=== PATIENT | female | born 1955 | race Caucasian/White ===

== ENCOUNTER 2018-11-05 16:21 | Outpatient (REF) | payer OTHER, SELFPAY ==
[2018-11-05 19:32] LABS: TSH (W/Ref FT4) 1.33 uIU/mL (0.358-3.74)
[2018-11-06 06:08] LABS: Vitamin D 25 Total 43.9 ng/ml (30-100)
== END 2018-11-05 16:41 ==
LOC: NCHCN 16:21
PROVIDERS: PCP Family Medicine; Visit Provider Family Medicine
DX: E03.9 Hypothyroidism, unspecified (principal); E55.9 Vitamin D deficiency, unspecified
CPT/HCPCS: 82306; 84443

== ENCOUNTER 2019-03-23 00:10 | Outpatient (CLI) | payer OTHER, SELFPAY ==
--- NOTE | 2019-03-23 11:20 | DI.MAMMO_ITS ---
SYMPTOMS/DIAGNOSIS: SCREENING, Z12.31 MAMMOGRAM: Mammograms were interpreted according to the usual protocol including computer analysis with CAD system, tomosynthesis and C view imaging. The breasts are of moderate density with fairly symmetrical distribution of fibroglandular tissue. No dominant mass or clumped microcalcification is identified in either breast. Current examination is compared with previous examinations including February 2018 and there has been no gross interval change in appearance in comparison with the previous studies. CONCLUSION: No specific evidence of malignancy at this time. Routine screening examinations are suggested at yearly intervals in this age group according to the ACS/ACR guidelines. Category 1, breast density category B. MQSA ASSESSMENT OF FINDINGS: Negative. Category 1. Patient will receive a letter notifying them of these results. BI-RADS category B. There are scattered areas of fibroglandular density.
== END 2019-03-23 00:30 ==
PROVIDERS: PCP Family Medicine; Visit Provider Family Medicine
DX: Z12.31 Encounter for screening mammogram for malignant neoplasm of breast (principal)
CPT/HCPCS: 77063; 77067

== ENCOUNTER 2019-11-06 15:54 | Outpatient (REF) | payer OTHER, SELFPAY ==
[2019-11-06 19:03] LABS: C-Reactive Protein 1.14 mg/dL (0.0-0.3)
[2019-11-06 20:38] LABS: ESR 27 mm/hr (0-30)
[2019-11-09 10:33] LABS: Cyclic Citrullinated Peptide <2.5 U/mL (<5.0)
[2019-11-10 15:33] LABS: ANA Interpretation Positive (Negative); ANA Titer Pattern 1:80 Speckled
== END 2019-11-06 16:14 ==
LOC: NCHCN 15:54
PROVIDERS: PCP Family Medicine; Visit Provider Family Medicine
DX: M25.539 Pain in unspecified wrist (principal)
CPT/HCPCS: 85652; 86200; 86038; 86140

== ENCOUNTER 2020-11-09 16:10 | Outpatient (REF) | payer OTHER, SELFPAY ==
--- NOTE | 2020-11-09 15:35 | PAPFT_PTH ---
PATIENT: Gerri Canales LOC: [facility]#:[id number] AGE/SX: 65/F ROOM: RE11/09/[address]: Mallory Chaudhary : 1955 BED: DIS: 11/09/2020 SPEC #: [id number] RECD: 11/10/20 13:08 STATUS: JESSE RENavdeep #: [id number] RAHAT: 11/09/20 15:[address]: Mallory Chaudhary DEPT: [facility] Cytology RECD BY: Araceli Schultz Tissues: 1 - CX/ENDOCX FOR PAP SMEARS Procedures: PAP THIN PREP/UVM Screening HPV DNA PROBE Comments: [id number]
[2020-11-09 20:51] LABS: HCT 40.9 % (36.0-46.0); HGB 13.4 g/dL (11.2-15.7); MCH 30.9 pg (27.0-33.0); MCHC 32.8 % (32.0-36.0); MCV 94.2 fL (80-95); MPV 10.6 fL (8.0-11.0); Platelet Count 349 10^3/uL (130-400); RBC 4.34 10^6/uL (3.93-5.22); RDW 12.9 % (11.7-14.6); RDW-SD 44.9 fL; WBC 8.25 10^3/uL (4.4-10.8)
[2020-11-09 21:22] LABS: Hemoglobin A1C 5.7 % (<5.7)
[2020-11-09 21:27] LABS: ALT 50 U/L (14-59); AST 24 U/L (15-37); Albumin 3.9 g/dL (3.4-5.0); Alkaline Phosphatase 83 U/L (46-116); Anion Gap 11.6 mmol/L (3-11); BUN 11 mg/dL (7-18); Bilirubin, Total 0.3 mg/dL (0.2-1.0); CO2 25.4 mmol/L (21.0-32.0); CREATININE 0.87 mg/dL (0.55-1.02); Calcium 9.4 mg/dL (8.5-10.1); Chloride 105 mmol/L (98-107); Glucose 103 mg/dL (74-106); Potassium 4.3 mmol/L (3.5-5.1); Sodium 142 mmol/L (136-145); TSH (W/Ref FT4) 1.96 uIU/mL (0.36-3.74); Total Protein 7.8 g/dL (6.4-8.2); Vitamin B12 1074 pg/mL (193-986)
[2020-11-09 21:28] LABS: Folate > 20.0 ng/mL (8.6-20.0)
[2020-11-10 04:49] LABS: Vitamin D 25 Total 43.2 ng/ml (30-100)
== END 2020-11-09 16:30 ==
LOC: NCHCN 16:10
PROVIDERS: PCP Family Medicine; Visit Provider Family Medicine
DX: R87.610 Atypical squamous cells of undetermined significance on cytologic smear of cervix (ASC-US) (principal); Z11.51 Encounter for screening for human papillomavirus (HPV); Z00.00 Encounter for general adult medical examination without abnormal findings; R20.2 Paresthesia of skin; Z13.1 Encounter for screening for diabetes mellitus; E55.9 Vitamin D deficiency, unspecified; E03.9 Hypothyroidism, unspecified
CPT/HCPCS: 80053; 82306; 85027; 88142; 82607; 82746; 83036; 84443; 87624

== ENCOUNTER 2020-11-16 01:06 | Outpatient (CLI) | payer OTHER, SELFPAY ==
--- NOTE | 2020-11-16 | DI.MAMMO_ITS ---
EXAM: MAMMO SCREENING CLINICAL HISTORY: SCREENING, Z12.31 TECHNIQUE: Mammograms were interpreted according to the usual protocol including computer analysis w [employer] CAD system, tomosynthesis and C-view imaging. COMPARISON: 2011 through 2018 FINDINGS: The breasts are composed of scattered fibroglandular densities, Breast Density category B. No suspicious masses or suspicious microcalcifications are seen. Benign calcifications are again not ed bilaterally. No skin thickening or abnormal axillary lymph nodes are seen. There has been no significant change from prior exams. IMPRESSION: BI-RADS Category 2 - Benign Findings Yearly screening mammography is recommended. Breast Density - Category B, scattered fibroglandular densities. A negative radiographic report should not delay biopsy if a dominant or clinically suspicious mass is present. Up to ten percent of cancers are not identified on mammography. A negative report may reinforce clinical impression. Adenosis and dense breasts may obscure an underlying neoplasm. False positive reports average 6 to 10%. Patient will receive a letter notifying them of these results.
== END 2020-11-16 01:26 ==
PROVIDERS: PCP Family Medicine; Visit Provider Family Medicine
DX: Z12.31 Encounter for screening mammogram for malignant neoplasm of breast (principal)
CPT/HCPCS: 77063; 77067

== ENCOUNTER 2021-05-12 19:50 | Outpatient (REF) | payer OTHER, SELFPAY ==
[2021-05-12 21:08] LABS: TSH (W/Ref FT4) 1.15 uIU/mL (0.36-3.74)
[2021-05-15 11:41] LABS: Lyme Ab w Rflx to Lyme Confirm Negative (Negative)
== END 2021-05-12 19:51 | disposition home or self-care (01) ==
LOC: LBN 19:50
PROVIDERS: PCP Family Medicine; Visit Provider Physician Assistant Medical
DX: R53.83 Other fatigue (principal)
CPT/HCPCS: 84443; 86618

== ENCOUNTER 2022-11-28 16:08 | Outpatient (REF) | payer MEDICARE, OTHER, SELFPAY ==
[2022-11-28 19:21] LABS: Anion Gap 8.6 mmol/L (3-11); BUN 11 mg/dL (7-18); CO2 28.4 mmol/L (21.0-32.0); CREATININE 0.8 mg/dL (0.55-1.02); Calcium 9.4 mg/dL (8.5-10.1); Chloride 103 mmol/L (98-107); Estimated GFR 81.21 (mL/min/1.73m2); Glucose 99 mg/dL (74-106); Potassium 4.1 mmol/L (3.5-5.1); Sodium 140 mmol/L (136-145); TSH (W/Ref FT4) 1.31 uIU/mL (0.36-3.74)
[2022-11-28 19:51] LABS: Hemoglobin A1C 5.6 % (<5.7)
== END 2022-11-28 16:09 | disposition home or self-care (01) ==
LOC: NCHCN 16:08
PROVIDERS: PCP Family Medicine; Visit Provider Family Medicine
DX: R73.03 Prediabetes (principal); I10 Essential (primary) hypertension; R53.83 Other fatigue
CPT/HCPCS: 80048; 83036; 84443

== ENCOUNTER 2022-12-03 00:06 | Outpatient (CLI) | payer MEDICARE, OTHER, SELFPAY ==
--- NOTE | 2022-12-03 11:45 | DI.MAMMO_ITS ---
Exam(s) MAMMO SCREENING EXAM: MAMMO SCREENING CLINICAL HISTORY: SCREENING, Z12.31 TECHNIQUE: Mammograms were interpreted according to the usual protocol including computer analysis w [employer] CAD system, tomosynthesis and C-view imaging. COMPARISON: 2013 through 2019 FINDINGS: The breasts are composed of scattered fibroglandular densities, Breast Density category B. No suspicious masses or suspicious microcalcifications are seen. Numerous scattered benign calcifica tions are again noted bilaterally. No skin thickening or abnormal axillary lymph nodes are seen. There has been no significant change from prior exams. IMPRESSION: BI-RADS Cat 2 - Benign Findings Yearly screening mammography is recommended. Breast Density - Category B, scattered fibroglandular densities. A negative radiographic report should not delay biopsy if a dominant or clinically suspicious mass is present. Up to ten percent of cancers are not identified on mammography. A negative report may reinforce clinical impression. Adenosis and dense breasts may obscure an underlying neoplasm. False positive reports average 6 to 10%. Patient will receive a letter notifying them of these results.
== END 2022-12-03 00:26 ==
LOC: DI 00:07
PROVIDERS: PCP Family Medicine; Visit Provider Family Medicine
DX: Z12.31 Encounter for screening mammogram for malignant neoplasm of breast (principal)
CPT/HCPCS: 77063; 77067